=== PATIENT | male | born 1985 | race American Indian/Alaskan Native ===

== ENCOUNTER 2019-09-09 15:06 | Inpatient (IN) | payer MEDICAID ==
[2019-09-09] MEDS ORDERED: ONDANSETRON 4 MG/2 ML INJ IV PRN (15:51)
[2019-09-09] MEDS ORDERED: traMADol 50 MG TAB PO PRN (16:11)
[2019-09-09] MEDS ORDERED: oxyCODONE 5 MG TAB PO PRN (16:12)
[2019-09-09] MEDS: MORPHINE 2 MG/1 ML INJ IV PRN ×2 (17:58→22:34)
[2019-09-09] MEDS: D5W/0.2% NACL 1,000 ML IV SCH ×2 (17:59→22:33)
--- NOTE | 2019-09-09 18:35 | XRay Report ---
SUPINE ABDOMEN INDICATION: ABDOMINAL BLOATING AND PAIN. COMPARISON: No relevant prior imaging study available. FINDINGS: No dilated loops of small bowel are seen. Colonic bowel gas pattern is within normal limits. Cholecys tectomy clips are noted in the right upper quadrant. There is sclerosis within the left femoral head. This could be related to osteonecrosis. However, no femoral head collapse/remodeling is seen. Correlate clinically. IMPRESSION: 1. No acute findings. Signer Name: Fabricio Mccormack MD Signed: 09/09/2019 6:31 PM Workstation Name: [id number]
--- NOTE | 2019-09-09 18:36 | XRay Report ---
CHEST PA AND LATERAL VIEWS INDICATION: COUGH. COMPARISON: None. FINDINGS: Support devices: None. Heart: Mildly enlarged. Lungs/Pleura: No acute pulmonary or pleural findings. Abnormal appearance of the thoracolumbar spine is consistent with sickle cell disease. IMPRESSION: 1. No acute findings. 2. Chronic changes of sickle cell disease. Signer Name: Fabricio Mccormack MD Signed: 09/09/2019 6:31 PM Workstation Name: [id number]
--- NOTE | 2019-09-09 21:19 | History and Physical Report ---
History of Present Illness Date of examination: 09/09/19 Date of admission: 09/09/19 16:43 Chief complaint: Diffuse joint pain, abd pain. History of present illness: Patient presented to the office , with CC as above, and directly admitted , for sxs management/control.Exami revealed fullness on the left UQ, and tender. He will get ABd immaging, hydration, pain control, and labs. Once sxs under control, he will be d/c home. Past History Past Medical History: anemia Past Surgical History: appendectomy Social history: single, lives with family Family history: no significant family history Medications and Allergies Allergies Allergy/AdvReac Type Severity Reaction Status Date / Time meperidine [From Demerol] AdvReac Unknown Verified 09/09/19 16:21 Home Medications Medication Instructions Recorded Confirmed Last Taken Type Aspirin [Aspirin BABY CHEW TAB] 81 mg PO QDAY 09/09/19 09/09/19 09/08/19 History Ergocalciferol(Vitamin D2)(Nf) 400 units PO DAILY 09/09/19 09/09/19 09/08/19 History [Vitamin D (Nf)] Folic Acid 1 mg PO DAILY 09/09/19 09/09/19 09/08/19 History Hydroxyurea [Siklos] 1,000 mg PO DAILY 09/09/19 09/09/19 Unknown History Oxycodone HCl [roxiCODONE] 15 mg PO Q6H PRN 09/09/19 09/09/19 Unknown History Oxycodone HCl/Acetaminophen 10 mg PO Q6HR PRN 09/09/19 09/09/19 09/08/19 History [Percocet 10/325 mg] Active Meds: Active Medications Folic Acid (Folvite) 1 mg PO QDAY CJ Hydroxyurea (Hydroxyurea) 1,000 mg PO QDAY CJ Dextrose/Sodium Chloride (D5ns 0.2%) 1,000 mls @ 250 mls/hr IV DIRECT CJ Last Admin: 09/09/19 17:59 Dose: 250 mls/hr Documented by: Morphine Sulfate (Morphine) 5 mg IV Q4H PRN PRN Reason: Pain , Severe (7-10) Last Admin: 09/09/19 17:58 Dose: 5 mg Documented by: Ondansetron HCl (Zofran) 4 mg IV Q6H PRN PRN Reason: Nausea And Vomiting Oxycodone HCl (Roxicodone) 15 mg PO Q6H PRN PRN Reason: Pain, Moderate (4-6) Polyethylene Glycol (Miralax 3350) 17 gm PO BID CJ Sodium Chloride (Sodium Chloride Flush Syringe 10 Ml) 10 ml IV BID CJ Sodium Chloride (Sodium Chloride Flush Syringe 10 Ml) 10 ml IV PRN PRN PRN Reason: LINE FLUSH Tramadol HCl (Ultram) 50 mg PO Q12H PRN PRN Reason: Pain, Mild (1-3) Review of Systems Constitutional: fatigue, chronic pain Gastrointestinal: abdominal pain, nausea Exam - Constitutional Vitals: Temp Pulse Resp BP Pulse Ox 98.4 F 76 16 103/55 91 09/09/19 17:35 09/09/19 17:35 09/09/19 17:35 09/09/19 17:35 09/09/19 17:35 General appearance: Present: mild distress, well-nourished - EENT Eyes: Present: PERRL ENT: hearing intact, clear oral mucosa - Neck Neck: Present: supple, normal ROM - Respiratory Respiratory effort: normal Respiratory: bilateral: CTA - Cardiovascular Heart Sounds: Present: S1 & S2. Absent: rub, click - Extremities Extremities: pulses symmetrical, No edema Peripheral Pulses: within normal limits - Abdominal General gastrointestinal: Present: soft, non-tender, non-distended, normal bowel sounds Localized gastrointestinal: tender: LUQ Male genitourinary: Present: deferred - Rectal Rectal Exam: deferred - Integumentary Integumentary: Present: clear, warm, dry - Musculoskeletal Musculoskeletal: gait normal, strength equal bilaterally - Psychiatric Psychiatric: appropriate mood/affect, intact judgment & insight - Neurologic Neurologic: CNII-XII intact, moves all extremities Assessment and Plan - Patient Problems (1) Sickle cell anemia with pain Current Visit: Yes Status: Acute Plan to address problem: Pain control. (2) Abdomen enlarged Current Visit: Yes Status: Acute Plan to address problem: CT exam (3) Dehydration Current Visit: Yes Status: Acute Plan to address problem: hydration
[2019-09-09 21:20] LABS: Hematocrit 20.2 % (35.5-45.6); Hemoglobin 7.4 gm/dl (11.8-15.2); Mean Corpuscular HGB Conc 37 % (32-34); Mean Corpuscular Volume 104 fl (84-94); Platelet Count 150 K/mm3 (140-440); Red Blood Count 1.94 M/mm3 (3.65-5.03)
[2019-09-09 21:21] LABS: Red Cell Distribution Width 22.5 % (13.2-15.2)
[2019-09-09 21:43] LABS: Alanine Aminotransferase 67 units/L (7-56); Albumin 3.7 g/dL (3.9-5); BUN/Creatinine Ratio 27; Blood Urea Nitrogen 8 mg/dL (9-20); Calcium 8.6 mg/dL (8.4-10.2); Hemolysis Index 11; Hepatitis B Surface Antigen Non-Reactive (Negative); Hepatitis C Virus Antibody Non-Reactive (NonReactive)
[2019-09-09 22:01] LABS: Basophils % (Manual) 0 % (0.0-1.8); Total Cells Counted 100
[2019-09-09 22:02] LABS: Anisocytosis 1+; Platelet Estimate Consistent w Auto; Sickle Cells 1+; Target Cells 1+
[2019-09-09] MEDS: POLYETHYLENE GLYCOL 3350 17 GM POWDER PO SCH (22:33)
[2019-09-10] MEDS: MORPHINE 2 MG/1 ML INJ IV PRN ×5 (02:43→22:09)
[2019-09-10] MEDS: D5W/0.2% NACL 1,000 ML IV SCH ×2 (06:57→12:34)
--- NOTE | 2019-09-10 09:11 | Cat Scan Report ---
CT ABDOMEN AND PELVIS WITH CONTRAST HISTORY: ABDOMINAL PAIN COMPARISON: None. TECHNIQUE: Axial CT images were obtained through the abdomen and pelvis after 100 cc of Omnipaque 300 intravenously. Sagittal and coronal reformatted images. All CT scans at this location are performed using CT dose reduction for ALARA by means of automated exposure control. FINDINGS: CT ABDOMEN: Lung Bases: Minor segmental atelectasis is noted in both lower lobes. No effusion. Liver: The liver is markedly enlarged, particularly the left hepatic lobe. Subtle surface nodularity is identified could represent early cirrhotic changes. There is an ill-defined area of diminished att enuation in the anterior liver measuring up to 12.7 x 6.4 cm in axial plane. A few tiny foci of enhan cement are identified within this area as well. The significance of this is unclear. No discrete mass or fluid collection is appreciated. Biliary: Cholecystectomy. Spleen: The spleen is calcified and small in size measuring 5.4 cm in length. Pancreas: No significant abnormality. Adrenals: No significant abnormality. Kidneys: No significant abnormality. Lymphatics: No lymphadenopathy. Vasculature: No significant abnormality. Bowel/Peritoneum: No evidence for bowel obstruction, focal inflammation or obvious mass. There is mod erate fecal retention in the colon and fecal is aeration of material in the distal ileum. Trace ascit es is identified. No abscess or free air. The appendix is not confidently identified. CT PELVIS: : The bladder and distal ureters are unremarkable. Osseous Structures: Right hip replacement appears intact. The osseous structures are mildly sclerotic . The vertebra are age she is just above the sickle cell disease. No acute fracture. 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 Additional Findings: None IMPRESSION: No acute inflammatory process is appreciated. Marked hepatomegaly as described above. Early cirrhotic changes could be considered. There is an ill- defined area of diminished attenuation in the anterior liver of uncertain etiology. This could repres ent a perfusion abnormality. Consider further evaluation with MRI. Mild constipation. Trace ascites. Sickle cell disease findings. Signer Name: Matt Cali Jr, MD Signed: 09/10/2019 9:07 AM Workstation Name: [id number]
[2019-09-10] MEDS: PANTOPRAZOLE 20 MG TAB PO SCH (09:27)
[2019-09-10] MEDS: HYDROXYUREA 500 MG CAP PO SCH (09:27)
[2019-09-10] MEDS: POLYETHYLENE GLYCOL 3350 17 GM POWDER PO SCH ×3 (09:27→22:09)
[2019-09-10] MEDS: FOLIC ACID 1 MG TAB PO SCH (09:27)
[2019-09-10] MEDS ORDERED: SODIUM CHLORIDE 0.9% 500 ML 500 ML IV NR (09:59)
--- NOTE | 2019-09-10 10:04 | Progress Note ---
Assessment and Plan - Patient Problems (1) Sickle cell anemia with pain Current Visit: Yes Status: Acute Plan to address problem: Pain control. (2) Abdomen enlarged Current Visit: Yes Status: Acute Plan to address problem: CT exam (3) Dehydration Current Visit: Yes Status: Acute Plan to address problem: hydration Subjective Date of service: 09/10/19 Interval history: Patient seen/examined, resting in bed, just finished CT of the Abd, and awaiting results, . Labs reviewed, case d/w patient. Hgb low, base line is 9.5, and will transfuse PRBC today. Objective - Constitutional Vitals: Vital Signs - 12hr 09/09/19 09/09/19 09/10/19 22:34 23:31 02:15 Temperature 98.6 F Pulse Rate 76 Respiratory 20 22 97 H Rate Blood Pressure 130/55 O2 Sat by Pulse 87 Oximetry 09/10/19 09/10/19 09/10/19 02:43 05:21 06:57 Temperature 98.4 F Pulse Rate 70 Respiratory 18 18 18 Rate Blood Pressure 112/56 O2 Sat by Pulse 92 Oximetry General appearance: Present: mild distress, well-nourished - EENT Eyes: PERRL, EOM intact ENT: hearing intact, clear oral mucosa Ears: bilateral: normal - Neck Neck: supple, normal ROM - Respiratory Respiratory effort: normal Respiratory: bilateral: CTA - Breasts Breasts: deferred - Cardiovascular Rhythm: regular Heart Sounds: Present: S1 & S2. Absent: gallop, rub Extremities: pulses intact, No edema, normal color, Full ROM - Gastrointestinal General gastrointestinal: Present: soft, non-tender, non-distended, normal bowel sounds - Genitourinary Male genitourinary: deferred - Integumentary Integumentary: clear, warm, dry - Musculoskeletal Musculoskeletal: 1, strength equal bilaterally - Neurologic Neurologic: moves all extremities - Psychiatric Psychiatric: memory intact, appropriate mood/affect, intact judgment & insight - Labs CBC & Chem 7: 09/09/19 20:18 09/09/19 20:18 Labs: Abnormal lab results 09/09/19 09/09/19 09/09/19 Range/Units 20:18 20:18 20:18 WBC 14.3 H (4.5-11.0) K/mm3 RBC 1.94 L (3.65-5.03) M/mm3 Hgb 7.4 L (11.8-15.2) gm/dl Hct 20.2 L (35.5-45.6) % MCV 104 H (84-94) fl MCH 38 H (28-32) pg MCHC 37 H (32-34) % RDW 22.5 H (13.2-15.2) % Monocytes % (Manual) 8.0 H (0.0-7.3) % Seg Neutrophils # Man 8.9 H (1.8-7.7) K/mm3 Monocytes # (Manual) 1.1 H (0.0-0.8) K/mm3 Percent Retic 19.31 H (0.78-2.58) % BUN 8 L (9-20) mg/dL Creatinine 0.3 L (0.8-1.5) mg/dL Glucose 117 H (75-100) mg/dL Ferritin (13.0-400.0) ng/mL Total Bilirubin 5.50 H (0.1-1.2) mg/dL AST 113 H (5-40) units/L ALT 67 H (7-56) units/L Alkaline Phosphatase 167 H (35-129) units/L Albumin 3.7 L 3.5 L (3.9-5) g/dL 09/09/19 Range/Units 20:18 WBC (4.5-11.0) K/mm3 RBC (3.65-5.03) M/mm3 Hgb (11.8-15.2) gm/dl Hct (35.5-45.6) % MCV (84-94) fl MCH (28-32) pg MCHC (32-34) % RDW (13.2-15.2) % Monocytes % (Manual) (0.0-7.3) % Seg Neutrophils # Man (1.8-7.7) K/mm3 Monocytes # (Manual) (0.0-0.8) K/mm3 Percent Retic (0.78-2.58) % BUN (9-20) mg/dL Creatinine (0.8-1.5) mg/dL Glucose (75-100) mg/dL Ferritin > 2000.0 H (13.0-400.0) ng/mL Total Bilirubin (0.1-1.2) mg/dL AST (5-40) units/L ALT (7-56) units/L Alkaline Phosphatase (35-129) units/L Albumin (3.9-5) g/dL
[2019-09-10] MEDS ORDERED: LIDOCAINE-MPF (1%) 10 MG/1 ML VIAL 5 ML INFILTRATI ONE (10:06)
[2019-09-10] MEDS: cefTRIAXone/NS 1 GM/50 ML 1 GM/50 ML BAG IV SCH (12:26)
--- NOTE | 2019-09-10 15:39 | Magnetic Resonance Report ---
MRI ABDOMEN WITHOUT CONTRAST INDICATION / CLINICAL INFORMATION: abnormal CT results.. Abdominal pain. Nausea and vomiting. TECHNIQUE: Multiplanar, multisequence series were obtained through the abdomen. COMPARISON: None available. FINDINGS: LIVER: The liver is markedly enlarged with minimal surface nodularity. The liver parenchyma is diffus jasvir decreased signal consistent with iron deposition. This has the appearance of hemosiderosis. The p reviously described perfusion defect or signal abnormality in the anterior liver is not demonstrated on MRI. GALLBLADDER: Cholecystectomy. No biliary dilatation. BILE DUCTS: No significant abnormality. PANCREAS: No significant abnormality. SPLEEN: The spleen is calcified measuring 6 to 7 cm in length. ADRENALS: No significant abnormality. RIGHT KIDNEY AND URETER: No significant abnormality. LEFT KIDNEY AND URETER: No significant abnormality. STOMACH AND VISUALIZED BOWEL: No significant abnormality. PERITONEUM: No free fluid. No free air. No fluid collection. LYMPH NODES: No significant adenopathy. AORTA and ARTERIES: No significant abnormality. IVC and VEINS: No significant abnormality. ADDITIONAL FINDINGS: None. IMPRESSION: Hepatomegaly. 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 No focal mass is demonstrated. Signer Name: Matt Cali Jr, MD Signed: 09/10/2019 3:34 PM Workstation Name: [id number]
[2019-09-10] MEDS ORDERED: diphenhydrAMINE 25 MG/10 ML ORAL LIQUID PO STA (18:12)
[2019-09-11] MEDS: MORPHINE 2 MG/1 ML INJ IV PRN ×4 (02:37→20:39)
[2019-09-11] MEDS: D5W/0.2% NACL 1,000 ML IV SCH ×3 (02:41→15:58)
[2019-09-11] MEDS: cefTRIAXone/NS 1 GM/50 ML 1 GM/50 ML BAG IV SCH (09:49)
[2019-09-11] MEDS: POLYETHYLENE GLYCOL 3350 17 GM POWDER PO SCH (09:49)
[2019-09-11] MEDS: PANTOPRAZOLE 20 MG TAB PO SCH (09:50)
[2019-09-11] MEDS: FOLIC ACID 1 MG TAB PO SCH (09:50)
[2019-09-11] MEDS: HYDROXYUREA 500 MG CAP PO SCH (09:50)
--- NOTE | 2019-09-11 23:36 | Progress Note ---
Assessment and Plan - Patient Problems (1) Sickle cell anemia with pain Current Visit: Yes Status: Acute Plan to address problem: Pain control. (2) Abdomen enlarged Current Visit: Yes Status: Acute Plan to address problem: CT exam Reviewed MRI results, and starting on iron removal therapy. (3) Dehydration Current Visit: Yes Status: Acute Plan to address problem: hydration (4) Insomnia Current Visit: Yes Status: Acute Plan to address problem: due to liver dz, will use natural sleeping aid. Subjective Date of service: 09/11/19 Interval history: Patient seen/examined, resting in bed, just finished CT of the Abd, and awaiting results, . Labs reviewed, case d/w patient. Hgb low, base line is 9.5, and will transfuse PRBC today. Patient seen/examined, resting in bed, Mri reviewed, results discussed with patient. He will be started on iron extraction therapy. . Objective - Constitutional Vitals: Vital Signs - 12hr 09/11/19 09/11/19 09/11/19 11:50 16:38 20:39 Temperature 98.4 F 98.1 F Pulse Rate 63 65 Respiratory 22 22 18 Rate Blood Pressure 105/53 115/64 O2 Sat by Pulse 92 92 Oximetry 09/11/19 23:16 Temperature 98.3 F Pulse Rate 65 Respiratory 20 Rate Blood Pressure 113/57 O2 Sat by Pulse 94 Oximetry General appearance: Present: mild distress, well-nourished - EENT Eyes: PERRL, EOM intact ENT: hearing intact, clear oral mucosa Ears: bilateral: normal - Neck Neck: supple, normal ROM - Respiratory Respiratory effort: normal Respiratory: bilateral: CTA - Breasts Breasts: deferred - Cardiovascular Rhythm: regular Heart Sounds: Present: S1 & S2. Absent: gallop, rub Extremities: pulses intact, No edema, normal color, Full ROM - Gastrointestinal General gastrointestinal: Present: soft, tender, distended, normal bowel sounds Rectal Exam: deferred - Genitourinary Male genitourinary: deferred - Integumentary Integumentary: clear, warm, dry - Musculoskeletal Musculoskeletal: 1, strength equal bilaterally - Neurologic Neurologic: moves all extremities - Psychiatric Psychiatric: memory intact, appropriate mood/affect, intact judgment & insight - Labs CBC & Chem 7: 09/09/19 20:18 09/09/19 20:18 Labs: Abnormal lab results 09/10/19 Range/Units 10:43 Crossmatch See Detail
[2019-09-12] MEDS: SODIUM CHLORIDE 0.9% IV SCH (00:29)
[2019-09-12] MEDS: MELATONIN 5 MG TAB PO PRN ×2 (00:29→21:44)
[2019-09-12] MEDS: DEFEROXAMINE MESYLATE IV SCH (00:29)
[2019-09-12] MEDS: POLYETHYLENE GLYCOL 3350 17 GM POWDER PO SCH ×3 (00:29→22:00)
[2019-09-12] MEDS: MORPHINE 2 MG/1 ML INJ IV PRN ×3 (00:52→10:08)
[2019-09-12 06:13] LABS: Hematocrit 23.6 % (35.5-45.6); Hemoglobin 8.7 gm/dl (11.8-15.2)
[2019-09-12] MEDS: D5W/0.2% NACL 1,000 ML IV SCH ×2 (09:50→17:36)
[2019-09-12] MEDS: HYDROXYUREA 500 MG CAP PO SCH (09:51)
[2019-09-12] MEDS: cefTRIAXone/NS 1 GM/50 ML 1 GM/50 ML BAG IV SCH (09:51)
[2019-09-12] MEDS: PANTOPRAZOLE 20 MG TAB PO SCH (09:55)
[2019-09-12] MEDS: FOLIC ACID 1 MG TAB PO SCH (09:55)
[2019-09-12] MEDS ORDERED: MORPHINE 2 MG/1 ML INJ IV PRN (10:16)
[2019-09-12] MEDS: MORPHINE 4 MG/1 ML INJ IV PRN ×2 (17:36→21:42)
--- NOTE | 2019-09-12 19:08 | Progress Note ---
Assessment and Plan - Patient Problems (1) Sickle cell anemia with pain Current Visit: Yes Status: Acute Plan to address problem: Pain control. (2) Abdomen enlarged Current Visit: Yes Status: Acute Plan to address problem: CT exam Reviewed MRI results, and starting on iron removal therapy. (3) Dehydration Current Visit: Yes Status: Acute Plan to address problem: hydration (4) Insomnia Current Visit: Yes Status: Acute Plan to address problem: due to liver dz, will use natural sleeping aid. Subjective Date of service: 09/12/19 Interval history: Patient seen/examined, resting in bed, just finished CT of the Abd, and awaiting results, . Labs reviewed, case d/w patient. Hgb low, base line is 9.5, and will transfuse PRBC today. Patient seen/examined, resting in bed, Mri reviewed, results discussed with patient. He will be started on iron extraction therapy. . Patient seen/examined, resting in bed, labs reviewed, case d/w patient. tolerating #1of 4 desf tx. Objective - Constitutional Vitals: Vital Signs - 12hr 09/12/19 09/12/19 11:52 17:15 Temperature 98.4 F 98.8 F Pulse Rate 66 69 Respiratory 18 18 Rate Blood Pressure 96/49 121/50 O2 Sat by Pulse 91 93 Oximetry General appearance: Present: mild distress, well-nourished - EENT Eyes: PERRL, EOM intact ENT: hearing intact, clear oral mucosa Ears: bilateral: normal - Neck Neck: supple, normal ROM - Respiratory Respiratory effort: normal Respiratory: bilateral: CTA - Breasts Breasts: deferred - Cardiovascular Rhythm: regular Heart Sounds: Present: S1 & S2. Absent: gallop, rub Extremities: pulses intact, No edema, normal color, Full ROM - Gastrointestinal General gastrointestinal: Present: soft, non-tender, non-distended, normal bowel sounds Rectal Exam: deferred - Genitourinary Male genitourinary: deferred - Integumentary Integumentary: clear, warm, dry - Musculoskeletal Musculoskeletal: 1, strength equal bilaterally - Neurologic Neurologic: moves all extremities - Psychiatric Psychiatric: memory intact, appropriate mood/affect, intact judgment & insight - Labs CBC & Chem 7: 09/12/19 05:37 09/09/19 20:18 Labs: Abnormal lab results 09/12/19 Range/Units 05:37 Hgb 8.7 L (11.8-15.2) gm/dl Hct 23.6 L (35.5-45.6) %
[2019-09-13] MEDS: SODIUM CHLORIDE 0.9% IV SCH
[2019-09-13] MEDS: DEFEROXAMINE MESYLATE IV SCH
[2019-09-13] MEDS: D5W/0.2% NACL 1,000 ML IV SCH ×3 (06:39→22:51)
[2019-09-13] MEDS: FOLIC ACID 1 MG TAB PO SCH ×2 (08:47→10:53)
[2019-09-13] MEDS: HYDROXYUREA 500 MG CAP PO SCH (10:52)
[2019-09-13] MEDS: POLYETHYLENE GLYCOL 3350 17 GM POWDER PO SCH ×3 (10:52→22:11)
[2019-09-13] MEDS: PANTOPRAZOLE 20 MG TAB PO SCH (10:52)
[2019-09-13] MEDS: MORPHINE 4 MG/1 ML INJ IV PRN ×3 (10:55→19:25)
[2019-09-13] MEDS: cefTRIAXone/NS 1 GM/50 ML 1 GM/50 ML BAG IV SCH (16:42)
--- NOTE | 2019-09-13 19:18 | Progress Note ---
Assessment and Plan - Patient Problems (1) Sickle cell anemia with pain Current Visit: Yes Status: Acute Plan to address problem: Pain control. (2) Abdomen enlarged Current Visit: Yes Status: Acute Plan to address problem: CT exam Reviewed MRI results, and starting on iron removal therapy. (3) Dehydration Current Visit: Yes Status: Acute Plan to address problem: hydration (4) Insomnia Current Visit: Yes Status: Acute Plan to address problem: due to liver dz, will use natural sleeping aid. Subjective Date of service: 09/13/19 Interval history: Patient seen/examined, resting in bed, just finished CT of the Abd, and awaiting results, . Labs reviewed, case d/w patient. Hgb low, base line is 9.5, and will transfuse PRBC today. Patient seen/examined, resting in bed, Mri reviewed, results discussed with patient. He will be started on iron extraction therapy. . Patient seen/examined, resting in bed, labs reviewed, case d/w patient. tolerating #1of 4 desf tx. Patient seen/examined, resting in bed, records reviewed, case d/w patient.He is tolerating the desf ok. the last bag will go on tomorrow.He will be d/c home subsequently. Objective - Constitutional Vitals: Vital Signs - 12hr 09/13/19 09/13/19 09/13/19 13:35 16:54 17:48 Temperature 98.6 F 98.5 F Pulse Rate 73 75 Respiratory 16 20 Rate Blood Pressure 109/52 113/54 O2 Sat by Pulse 94 94 95 Oximetry General appearance: Present: mild distress, well-nourished - EENT Eyes: PERRL, EOM intact ENT: hearing intact, clear oral mucosa Ears: bilateral: normal - Neck Neck: supple, normal ROM - Respiratory Respiratory effort: normal Respiratory: bilateral: CTA - Breasts Breasts: deferred - Cardiovascular Rhythm: regular Heart Sounds: Present: S1 & S2. Absent: gallop, rub Extremities: pulses intact, No edema, normal color, Full ROM - Gastrointestinal General gastrointestinal: Present: soft, non-tender, non-distended, normal bowel sounds Rectal Exam: deferred - Genitourinary Male genitourinary: deferred - Integumentary Integumentary: clear, warm, dry - Musculoskeletal Musculoskeletal: 1, strength equal bilaterally - Neurologic Neurologic: moves all extremities - Psychiatric Psychiatric: memory intact, appropriate mood/affect, intact judgment & insight - Labs CBC & Chem 7: 09/12/19 05:37 09/09/19 20:18
[2019-09-13] MEDS: MELATONIN 5 MG TAB PO PRN (22:11)
[2019-09-14] MEDS: DEFEROXAMINE MESYLATE IV SCH (00:02)
[2019-09-14] MEDS: SODIUM CHLORIDE 0.9% IV SCH (00:02)
[2019-09-14] MEDS: MORPHINE 4 MG/1 ML INJ IV PRN ×5 (00:36→22:40)
[2019-09-14] MEDS: D5W/0.2% NACL 1,000 ML IV SCH ×2 (08:18→18:31)
[2019-09-14] MEDS: PANTOPRAZOLE 20 MG TAB PO SCH (10:34)
[2019-09-14] MEDS: FOLIC ACID 1 MG TAB PO SCH (10:34)
[2019-09-14] MEDS: cefTRIAXone/NS 1 GM/50 ML 1 GM/50 ML BAG IV SCH (10:34)
[2019-09-14] MEDS: POLYETHYLENE GLYCOL 3350 17 GM POWDER PO SCH ×2 (10:34→22:40)
[2019-09-14] MEDS: HYDROXYUREA 500 MG CAP PO SCH (10:35)
[2019-09-14 10:55] LABS: Hematocrit 23.9 % (35.5-45.6); Hemoglobin 8.6 gm/dl (11.8-15.2)
--- NOTE | 2019-09-14 15:45 | Progress Note ---
Assessment and Plan - Patient Problems (1) Sickle cell anemia with pain Current Visit: Yes Status: Acute Plan to address problem: Pain control. (2) Abdomen enlarged Current Visit: Yes Status: Acute Plan to address problem: CT exam Reviewed MRI results, and starting on iron removal therapy. (3) Dehydration Current Visit: Yes Status: Acute Plan to address problem: hydration (4) Insomnia Current Visit: Yes Status: Acute Plan to address problem: due to liver dz, will use natural sleeping aid. Subjective Date of service: 09/14/19 Interval history: Patient seen/examined, resting in bed, just finished CT of the Abd, and awaiting results, . Labs reviewed, case d/w patient. Hgb low, base line is 9.5, and will transfuse PRBC today. Patient seen/examined, resting in bed, Mri reviewed, results discussed with patient. He will be started on iron extraction therapy. . Patient seen/examined, resting in bed, labs reviewed, case d/w patient. tolerating #1of 4 desf tx. Patient seen/examined, resting in bed, records reviewed, case d/w patient.He is tolerating the desf ok. the last bag will go on tomorrow.He will be d/c home subsequently. Patient seen/examined, resting in bed, records reviewed, case d/w patient. he will have the last Desf up tonight, and d/c home tomorrow.Retic count is down. Objective - Constitutional Vitals: Vital Signs - 12hr 09/14/19 09/14/19 05:18 14:10 Temperature 98.5 F 98.8 F Pulse Rate 68 76 Respiratory 18 18 Rate Blood Pressure 89/41 113/54 O2 Sat by Pulse 99 92 Oximetry General appearance: Present: mild distress, well-nourished - EENT Eyes: PERRL, EOM intact ENT: hearing intact, clear oral mucosa Ears: bilateral: normal - Neck Neck: supple, normal ROM - Respiratory Respiratory effort: normal Respiratory: bilateral: CTA - Breasts Breasts: deferred - Cardiovascular Rhythm: regular Heart Sounds: Present: S1 & S2. Absent: gallop, rub Extremities: pulses intact, No edema, normal color, Full ROM - Gastrointestinal General gastrointestinal: Present: soft, non-tender, non-distended, normal bowel sounds Rectal Exam: deferred - Genitourinary Male genitourinary: deferred - Integumentary Integumentary: clear, warm, dry - Musculoskeletal Musculoskeletal: 1, strength equal bilaterally - Neurologic Neurologic: moves all extremities - Psychiatric Psychiatric: memory intact, appropriate mood/affect, intact judgment & insight - Labs CBC & Chem 7: 09/14/19 09:56 09/09/19 20:18 Labs: Abnormal lab results 09/14/19 Range/Units 09:56 Hgb 8.6 L (11.8-15.2) gm/dl Hct 23.9 L (35.5-45.6) % Percent Retic 7.64 H (0.78-2.58) %
[2019-09-15] MEDS: SODIUM CHLORIDE 0.9% IV SCH (00:54)
[2019-09-15] MEDS: DEFEROXAMINE MESYLATE IV SCH (00:54)
[2019-09-15] MEDS: MELATONIN 5 MG TAB PO PRN (03:57)
[2019-09-15] MEDS: MORPHINE 4 MG/1 ML INJ IV PRN (08:47)
[2019-09-15] MEDS: PANTOPRAZOLE 20 MG TAB PO SCH (09:11)
[2019-09-15] MEDS: POLYETHYLENE GLYCOL 3350 17 GM POWDER PO SCH (09:12)
[2019-09-15] MEDS: HYDROXYUREA 500 MG CAP PO SCH (09:12)
[2019-09-15] MEDS: FOLIC ACID 1 MG TAB PO SCH (09:12)
[2019-09-15 10:48] VITALS: BP 110/54
--- NOTE | 2019-09-15 20:44 | Discharge Summary ---
Providers - Providers Date of Admission: 09/09/19 16:43 Date of discharge: 09/15/19 Attending physician: LISA PAREDES Primary care physician: LISA PAREDES Hospitalization Reason for admission: SCD/Pain crisis. Condition: Stable Hospital course: Patient presented to the office, with CC of diffuse joint pain, and abd pain. his pain was not controlled in the office, hence admitted , for sxs management, and w/up. He was hydrated, pain control, rad imaging showed cirhosis of the liver, from previous chronic iron overload.He was treated with iron chelation, will do liver bx out patient, for definitive dx. He felt much better , and was d/c home today. Disposition: DC-01 TO HOME OR SELFCARE - Discharge Diagnoses (1) Sickle cell anemia with pain Status: Chronic (2) Abdomen enlarged Status: Chronic (3) Dehydration Status: Resolved (4) Insomnia Status: Chronic Core Measure Documentation - Palliative Care Palliative Care/ Comfort Measures: Not Applicable - Core Measures Any of the following diagnoses?: none Exam - Constitutional Vitals: Temp Pulse Resp BP Pulse Ox 98.2 F 82 16 110/54 96 09/15/19 10:47 09/15/19 10:47 09/15/19 10:45 09/15/19 10:47 09/15/19 10:47 General appearance: Present: no acute distress, well-nourished - EENT Eyes: Present: PERRL ENT: hearing intact, clear oral mucosa - Neck Neck: Present: supple, normal ROM - Respiratory Respiratory effort: normal Respiratory: bilateral: CTA - Cardiovascular Heart Sounds: Present: S1 & S2. Absent: rub, click - Extremities Extremities: pulses symmetrical, No edema Peripheral Pulses: within normal limits - Abdominal General gastrointestinal: Present: soft, non-tender, non-distended, normal bowel sounds Male genitourinary: Present: deferred - Rectal Rectal Exam: deferred - Integumentary Integumentary: Present: clear, warm, dry - Musculoskeletal Musculoskeletal: gait normal, strength equal bilaterally - Psychiatric Psychiatric: appropriate mood/affect, intact judgment & insight - Neurologic Neurologic: CNII-XII intact, moves all extremities Plan Activity: no restrictions Diet: regular Follow up with: LISA PAREDES DO [Primary Care Provider] - 7 Days
== END 2019-09-15 11:10 | disposition home or self-care (01) | DRG 811 ==
LOC: 3A 15:06 → UNDOADMIN 15:06 → 3A 16:43
PROVIDERS: ADMIT Internal Medicine Hematology & Oncology; ATTEND Internal Medicine Hematology & Oncology
PROC: 30233N1 Transfusion of Nonautologous Red Blood Cells into Peripheral Vein, Percutaneous Approach (ICD-10-PCS; principal; 2019-09-10)
DX: D57.00 Hb-SS disease with crisis, unspecified (principal); R65.11 Systemic inflammatory response syndrome (SIRS) of non-infectious origin with acute organ dysfunction; E86.0 Dehydration; R18.8 Other ascites; G47.00 Insomnia, unspecified
CPT/HCPCS: 36415; 71046; 74018; 74177; 74181; 80053; 80074; 82040; 82140; 82150; 82728; 83540; 83690; 85007; 85014; 85018; 85025; 85045; 86850; 86900; 86901; 86920; 87040; 87086; 87116; 94760; 99406; G0378; J0696; J0895; J2270; J7040; J7050; P9016; Q0163; Q9967

== ENCOUNTER 2019-10-13 14:26 | Inpatient (IN) | payer MEDICAID ==
[2019-10-13] MEDS ORDERED: IBUPROFEN 600 MG TAB PO PRN (15:11)
[2019-10-13] MEDS ORDERED: MAGNESIUM HYDROXIDE (MOM) ORAL LIQD UDC PO PRN (15:11)
[2019-10-13] MEDS: D5W/0.2% NACL 1,000 ML IV SCH ×2 (17:18→21:49)
--- NOTE | 2019-10-13 17:33 | XRay Report ---
Abdomen single view INDICATION: Abdominal pain IMPRESSION: Prior cholecystectomy. Small clip identified within the right lower abdomen. Nonobstructi ve bowel gas pattern however the liver appears severely enlarged. Signer Name: Blas Dempsey MD Signed: 10/13/2019 5:28 PM Workstation Name: [id number]
[2019-10-13] MEDS ORDERED: SODIUM CHLORIDE 0.9% 500 ML 500 ML IV ONE (18:00)
[2019-10-13 18:03] LABS: Hemoglobin 7.1 gm/dl (11.8-15.2); Mean Corpuscular HGB Conc 36 % (32-34); Mean Corpuscular Volume 104 fl (84-94); Platelet Count 157 K/mm3 (140-440); Red Blood Count 1.92 M/mm3 (3.65-5.03)
[2019-10-13 18:19] LABS: Red Cell Distribution Width 20.9 % (13.2-15.2)
[2019-10-13 18:20] LABS: Hematocrit 19.9 % (35.5-45.6)
[2019-10-13 18:26] LABS: Alanine Aminotransferase 441 units/L (7-56); Albumin 3.5 g/dL (3.9-5); BUN/Creatinine Ratio 25; Blood Urea Nitrogen 15 mg/dL (9-20); Calcium 8.6 mg/dL (8.4-10.2); Hemolysis Index 3
[2019-10-13 18:58] LABS: Anisocytosis 1+; Basophils % (Manual) 0 % (0.0-1.8); Eosinophils % (Manual) 0 % (0.0-4.3); Schistocytes 1+; Total Cells Counted 100
[2019-10-13 18:59] LABS: Target Cells 1+
[2019-10-13] MEDS: MORPHINE 4 MG/1 ML INJ IV PRN (19:45)
[2019-10-13] MEDS: POLYETHYLENE GLYCOL 3350 17 GM POWDER PO SCH (21:49)
[2019-10-13] MEDS ORDERED: ALUM-MAG HYDROXIDE-SIMETHICONE 200-200-20MG/5ML ORAL LIQD 30 ML PO PRN (21:50)
--- NOTE | 2019-10-13 22:15 | History and Physical Report ---
History of Present Illness Date of examination: 10/13/19 Date of admission: 10/13/19 16:30 Chief complaint: SCD/acute pain crisis/dehydration/hypotension. History of present illness: Patient presented to the office , with CC of diffuse pain, unable, to resolve this at home, or in the office, hence this admission, for sxs control, and management. He has iron overload , from years of blood transfusion.He will get desfarol x 2-3 days, pain control, hydration. Past History Past Medical History: liver disease Social history: no significant social history, single, lives with family Family history: no significant family history Medications and Allergies Allergies Allergy/AdvReac Type Severity Reaction Status Date / Time meperidine [From Demerol] AdvReac Unknown Verified 09/09/19 16:21 Home Medications Medication Instructions Recorded Confirmed Last Taken Type Aspirin [Aspirin BABY CHEW TAB] 81 mg PO QDAY 09/09/19 09/09/19 09/08/19 History Ergocalciferol(Vitamin D2)(Nf) 400 units PO DAILY 09/09/19 09/09/19 09/08/19 History [Vitamin D (Nf)] Folic Acid 1 mg PO DAILY 09/09/19 09/09/19 09/08/19 History Hydroxyurea [Siklos] 1,000 mg PO DAILY 09/09/19 09/09/19 Unknown History Oxycodone HCl [roxiCODONE] 15 mg PO Q6H PRN 09/09/19 09/09/19 Unknown History Oxycodone HCl/Acetaminophen 10 mg PO Q6HR PRN 09/09/19 09/09/19 09/08/19 History [Percocet 10/325 mg] Active Meds: Active Medications Al Hydrox/Mg Hydrox/Simethicone (Alum-Mag Hydrox-Simeth [id number]/5ml) 30 ml PO Q6HR PRN PRN Reason: Indigestion Folic Acid (Folvite) 1 mg PO QDAY CJ Dextrose/Sodium Chloride (D5ns 0.2%) 1,000 mls @ 250 mls/hr IV DIRECT CJ Last Admin: 10/13/19 21:49 Dose: 250 mls/hr Documented by: Ibuprofen (Ibuprofen) 600 mg PO Q8H PRN PRN Reason: Pain, Mild (1-3) Magnesium Hydroxide (Milk Of Magnesia) 30 ml PO Q4H PRN PRN Reason: Constipation Morphine Sulfate (Morphine) 4 mg IV Q4H PRN PRN Reason: Pain , Severe (7-10) Last Admin: 10/13/19 19:45 Dose: 4 mg Documented by: Oxycodone HCl (Roxicodone) 15 mg PO Q6H PRN PRN Reason: Pain, Moderate (4-6) Polyethylene Glycol (Miralax 3350) 17 gm PO BID [facility] Last Admin: 10/13/19 21:49 Dose: 17 gm Documented by: Sodium Chloride (Sodium Chloride Flush Syringe 10 Ml) 10 ml IV BID [facility] Last Admin: 10/13/19 21:48 Dose: 10 ml Documented by: Sodium Chloride (Sodium Chloride Flush Syringe 10 Ml) 10 ml IV PRN PRN PRN Reason: LINE FLUSH Review of Systems Constitutional: fatigue, weakness, chronic pain Gastrointestinal: abdominal pain, nausea, constipation Integumentary: dryness Exam - Constitutional Vitals: Temp Pulse Resp BP Pulse Ox 98.0 F 123 H 16 112/78 92 10/13/19 17:22 10/13/19 17:22 10/13/19 20:15 10/13/19 17:22 10/13/19 17:22 General appearance: Present: mild distress, well-nourished - EENT Eyes: Present: PERRL ENT: hearing intact, clear oral mucosa - Neck Neck: Present: supple, normal ROM - Respiratory Respiratory effort: normal Respiratory: bilateral: CTA - Cardiovascular Heart Sounds: Present: S1 & S2. Absent: rub, click - Extremities Extremities: pulses symmetrical, No edema Peripheral Pulses: within normal limits - Abdominal General gastrointestinal: Present: soft, non-tender, non-distended, normal bowel sounds Male genitourinary: Present: deferred - Rectal Rectal Exam: deferred - Integumentary Integumentary: Present: clear, warm, dry - Musculoskeletal Musculoskeletal: gait normal, strength equal bilaterally - Psychiatric Psychiatric: appropriate mood/affect, intact judgment & insight - Neurologic Neurologic: CNII-XII intact, moves all extremities Results - Labs CBC & Chem 7: 10/13/19 17:50 10/13/19 17:50 Labs: Abnormal lab results 10/13/19 10/13/19 10/13/19 Range/Units 17:50 17:50 17:50 WBC 20.9 H (4.5-11.0) K/mm3 RBC 1.92 L (3.65-5.03) M/mm3 Hgb 7.1 L (11.8-15.2) gm/dl Hct 19.9 L* (35.5-45.6) % MCV 104 H (84-94) fl MCH 37 H (28-32) pg MCHC 36 H (32-34) % RDW 20.9 H (13.2-15.2) % Seg Neuts % (Manual) 83.0 H (40.0-70.0) % Lymphocytes % (Manual) 7.0 L (13.4-35.0) % Monocytes % (Manual) 10.0 H (0.0-7.3) % Seg Neutrophils # Man 17.3 H (1.8-7.7) K/mm3 Monocytes # (Manual) 2.1 H (0.0-0.8) K/mm3 Sodium 132 L (137-145) mmol/L Chloride 96.7 L (98-107) mmol/L Creatinine 0.6 L (0.8-1.5) mg/dL Glucose 183 H (75-100) mg/dL Ferritin 2000.0 H (13.0-400.0) ng/mL Total Bilirubin 7.30 H (0.1-1.2) mg/dL AST 417 H (5-40) units/L ALT 441 H (7-56) units/L Albumin 3.5 L (3.9-5) g/dL Assessment and Plan - Patient Problems (1) Abdomen enlarged Current Visit: No Status: Chronic Plan to address problem: Due to ESLD, /iron overload. (2) Sickle cell anemia with pain Current Visit: No Status: Chronic Plan to address problem: pain control., monitor labs. (3) Dehydration Current Visit: No Status: Resolved Plan to address problem: hydration (4) Leukocytosis Current Visit: Yes Status: Acute Plan to address problem: Most likely due to SIRS, and will treat accordingly. (5) Iron overload due to repeated red blood cell transfusions Current Visit: Yes Status: Chronic Plan to address problem: Will refrain from blood transfusion, as much as possible. (6) Iron overload syndrome Current Visit: Yes Status: Acute Plan to address problem: Iron extraction therapy.
[2019-10-13] MEDS ORDERED: cefTRIAXone/NS 2 GM/100 ML 2 GM/100 ML BAG IV ONE (23:00)
[2019-10-13] MEDS ORDERED: SODIUM CHLORIDE 0.9% 1000 ML 1,000 ML IV ONE (23:29)
[2019-10-13] MEDS: oxyCODONE 5 MG TAB PO PRN (23:38)
[2019-10-14] MEDS ORDERED: ONDANSETRON 4 MG/2 ML INJ IV PRN (01:08)
[2019-10-14] MEDS ORDERED: diphenhydrAMINE 50 MG/ML VIAL IV PRN (01:09)
[2019-10-14] MEDS: D5W/0.2% NACL 1,000 ML IV SCH ×4 (05:26→21:15)
[2019-10-14] MEDS: oxyCODONE 5 MG TAB PO PRN ×3 (05:29→21:15)
[2019-10-14] MEDS: POLYETHYLENE GLYCOL 3350 17 GM POWDER PO SCH ×2 (09:34→22:04)
[2019-10-14] MEDS: FOLIC ACID 1 MG TAB PO SCH (09:34)
[2019-10-14] MEDS: cefTRIAXone/NS 2 GM/100 ML 2 GM/100 ML BAG IV SCH (09:34)
[2019-10-14] MEDS: DEFEROXAMINE MESYLATE IV SCH (10:32)
[2019-10-14] MEDS: SODIUM CHLORIDE 0.9% IV SCH (10:32)
--- NOTE | 2019-10-14 18:57 | Progress Note ---
Assessment and Plan - Patient Problems (1) Abdomen enlarged Current Visit: No Status: Chronic Plan to address problem: Due to ESLD, /iron overload. (2) Sickle cell anemia with pain Current Visit: No Status: Chronic Plan to address problem: pain control., monitor labs. (3) Dehydration Current Visit: No Status: Resolved Plan to address problem: hydration (4) Leukocytosis Current Visit: Yes Status: Acute Plan to address problem: Most likely due to SIRS, and will treat accordingly. (5) Iron overload due to repeated red blood cell transfusions Current Visit: Yes Status: Chronic Plan to address problem: Will refrain from blood transfusion, as much as possible. (6) Iron overload syndrome Current Visit: Yes Status: Acute Plan to address problem: Iron extraction therapy. Subjective Date of service: 10/14/19 Interval history: Patient seen/examined, resting in bed, , no new labs.tolerating Desfarol ok. will do am labs, and if stable, will plan D/C. Objective - Constitutional Vitals: Vital Signs - 12hr 10/14/19 10/14/19 10/14/19 09:39 11:42 17:43 Temperature 99.0 F 100.9 F H Pulse Rate 96 H 115 H Respiratory 18 18 Rate Blood Pressure 111/54 106/61 O2 Sat by Pulse 96 96 98 Oximetry General appearance: Present: mild distress, well-nourished - EENT Eyes: PERRL, EOM intact ENT: hearing intact, clear oral mucosa Ears: bilateral: normal - Neck Neck: supple, normal ROM - Respiratory Respiratory effort: normal Respiratory: bilateral: CTA - Breasts Breasts: deferred - Cardiovascular Rhythm: regular Heart Sounds: Present: S1 & S2. Absent: gallop, rub Extremities: pulses intact, No edema, normal color, Full ROM - Gastrointestinal General gastrointestinal: Present: soft, non-tender, non-distended, normal bowel sounds Rectal Exam: deferred - Genitourinary Male genitourinary: deferred - Integumentary Integumentary: clear, warm, dry - Musculoskeletal Musculoskeletal: 1, strength equal bilaterally - Neurologic Neurologic: moves all extremities - Psychiatric Psychiatric: memory intact, appropriate mood/affect, intact judgment & insight - Labs CBC & Chem 7: 10/13/19 17:50 10/13/19 17:50 Labs: Abnormal lab results 10/13/19 10/13/19 Range/Units 17:50 17:50 Seg Neuts % (Manual) 83.0 H (40.0-70.0) % Lymphocytes % (Manual) 7.0 L (13.4-35.0) % Monocytes % (Manual) 10.0 H (0.0-7.3) % Seg Neutrophils # Man 17.3 H (1.8-7.7) K/mm3 Monocytes # (Manual) 2.1 H (0.0-0.8) K/mm3 Ferritin 2000.0 H (13.0-400.0) ng/mL
[2019-10-14] MEDS ORDERED: MAGNESIUM CITRATE 300 ML ORAL LIQD PO PRN (19:45)
[2019-10-14] MEDS ORDERED: MINERAL OIL ENEMA 133 ML PR ONE (20:41)
[2019-10-14] MEDS ORDERED: guaiFENesin 200 MG TAB PO PRN (21:44)
--- NOTE | 2019-10-14 22:45 | XRay Report ---
CHEST 1 VIEW INDICATION: COUGH. COMPARISON: None. FINDINGS: Support devices: None. Heart: Mild cardiac enlargement. Lungs/Pleura: No acute air space or interstitial disease. Additional findings: Avascular necrosis of the humeral head. IMPRESSION: Mild cardiac enlargement. No acute infiltrate. Signer Name: Grupo Geronimo MD Signed: 10/14/2019 10:41 PM Workstation Name: [id number] [id number]
[2019-10-14] MEDS: ACETAMINOPHEN 325 MG TAB PO PRN (22:47)
[2019-10-15] MEDS: guaiFENesin 100 MG/5 ML ORAL LIQD PO PRN ×2 (00:42→18:30)
[2019-10-15] MEDS: D5W/0.2% NACL 1,000 ML IV SCH ×4 (01:15→20:50)
[2019-10-15] MEDS: oxyCODONE 5 MG TAB PO PRN ×3 (03:15→19:28)
[2019-10-15] MEDS: ACETAMINOPHEN 325 MG TAB PO PRN ×3 (08:03→20:07)
[2019-10-15 08:42] LABS: Hemoglobin 6.2 gm/dl (11.8-15.2)
[2019-10-15 08:45] LABS: Hematocrit 17.4 % (35.5-45.6)
[2019-10-15] MEDS ORDERED: SODIUM CHLORIDE 0.9% 500 ML 500 ML IV NR (08:55)
[2019-10-15] MEDS ORDERED: methylPREDNISolone Sod Succinate 125 MG/2 ML INJ IV NR (08:57)
[2019-10-15] MEDS ORDERED: diphenhydrAMINE 50 MG/ML VIAL IV NR (08:59)
[2019-10-15] MEDS: POLYETHYLENE GLYCOL 3350 17 GM POWDER PO SCH ×2 (09:23→21:55)
[2019-10-15] MEDS: cefTRIAXone/NS 2 GM/100 ML 2 GM/100 ML BAG IV SCH (09:24)
[2019-10-15] MEDS: DEFEROXAMINE MESYLATE IV SCH (09:25)
[2019-10-15] MEDS: SODIUM CHLORIDE 0.9% IV SCH (09:25)
[2019-10-15] MEDS: FOLIC ACID 1 MG TAB PO SCH (09:25)
--- NOTE | 2019-10-15 18:38 | Discharge Summary ---
Providers - Providers Date of Admission: 10/13/19 16:30 Date of discharge: 10/16/19 Attending physician: LISA PAREDES 10/13/19 18:07 Consult to Dietitian/Nutrition [CONS] Routine Physician Instructions: Reason For Exam: Reason for Consult: Poor oral intake 10/15/19 15:35 Consult to Physician [CONS] Urgent Comment: Consulting Provider: [facility] Physician Instructions: Reason For Exam: temperature 103.2 Primary care physician: LISA PAREDES Hospitalization Reason for admission: SCD/Dehydration Hospital course: Patient presented to the office ,with diffuse joint pain, and admitted for sxs management. He received pain med, hydration, and will get blood transfusion, only one unit for hgb of 6.2, and patient already have liver Dz from iron over load.If no fever in tomorrow, and he gets blood ok, will d/c home, otherwise, will allow ID to see.So far all cultures reviewed, are negative.Patient has been on IV ABX , since admission. 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 Disposition: DC- TO HOME OR SELFCARE - Discharge Diagnoses (1) Abdomen enlarged Status: Chronic (2) Sickle cell anemia with pain Status: Resolved (3) Dehydration Status: Resolved (4) Leukocytosis Status: Chronic (5) Iron overload due to repeated red blood cell transfusions Status: Chronic (6) Iron overload syndrome Status: Chronic Core Measure Documentation - Palliative Care Palliative Care/ Comfort Measures: Not Applicable - Core Measures Any of the following diagnoses?: none Exam - Constitutional Vitals: Temp Pulse Resp BP Pulse Ox 100.9 F H 111 H 18 111/53 94 10/15/19 17:57 10/15/19 17:57 10/15/19 17:57 10/15/19 17:57 10/15/19 17:57 General appearance: Present: no acute distress, well-nourished - EENT Eyes: Present: PERRL ENT: hearing intact, clear oral mucosa - Neck Neck: Present: supple, normal ROM - Respiratory Respiratory effort: normal Respiratory: bilateral: CTA - Cardiovascular Heart Sounds: Present: S1 & S2. Absent: rub, click - Extremities Extremities: pulses symmetrical, No edema Peripheral Pulses: within normal limits - Abdominal General gastrointestinal: Present: distended, normal bowel sounds, other (from liver enlargement.) Localized gastrointestinal: tender: LUQ Male genitourinary: Present: deferred - Rectal Rectal Exam: deferred - Integumentary Integumentary: Present: clear, warm, dry - Musculoskeletal Musculoskeletal: gait normal, strength equal bilaterally - Psychiatric Psychiatric: appropriate mood/affect, intact judgment & insight - Neurologic Neurologic: CNII-XII intact, moves all extremities Plan Activity: no restrictions Diet: regular Follow up with: LISA PAREDES DO [Primary Care Provider] - 7 Days
[2019-10-16] MEDS: D5W/0.2% NACL 1,000 ML IV SCH ×3 (00:44→17:52)
[2019-10-16 07:24] LABS: Hemoglobin 6.3 gm/dl (11.8-15.2)
[2019-10-16] MEDS: oxyCODONE 5 MG TAB PO PRN ×2 (07:27→18:01)
[2019-10-16 07:44] LABS: Hematocrit 18.5 % (35.5-45.6)
--- NOTE | 2019-10-16 10:29 | Magnetic Resonance Report ---
MR ABDOMEN WITHOUT CONTRAST HISTORY: MRI of the liver to rule out liver abscess. Iron TECHNIQUE: Multisequence, multiplanar MRI without contrast. COMPARISON: MR abdomen without contrast 09/10/2019. CT abdomen pelvis with contrast 09/10/2019. FINDINGS: Hepatomegaly with marked enlargement of the left hepatic lobe and surface nodularity is again noted. The liver parenchyma is diffusely decreased signal on T1 and T2 images consistent with iron depositio n. Considerations include hemosiderosis or hemachromatosis. Please correlate with the patient's clini diana history. There is no evidence for focal liver mass or abscess on MRI. Previously described area o f diminished attenuation on recent CT in the anterior liver is poorly imaged on MRI. Cholecystectomy changes. No biliary dilatation. The spleen is calcified and small in size measuring 5 to 6 cm. Signal characteristics of the pancreas, kidneys, adrenal glands and visualized bowel loops are within normal limits. The aorta is widely patent. Iron deposition is also suspected in multiple normal size retroperitoneal lymph nodes. No pathologic adenopathy is identified. IMPRESSION: No significant change since 09/10/2019. No evidence for liver abscess. Hepatomegaly with cirrhotic changes. Iron deposition is suspected throughout the liver which could re present hemosiderosis or hemachromatosis. Cholecystectomy. Signer Name: Matt Cali Jr, MD Signed: 10/16/2019 10:25 AM Workstation Name: [id number]
[2019-10-16] MEDS: FOLIC ACID 1 MG TAB PO SCH (10:40)
[2019-10-16] MEDS: POLYETHYLENE GLYCOL 3350 17 GM POWDER PO SCH ×2 (10:40→21:14)
[2019-10-16] MEDS: cefTRIAXone/NS 2 GM/100 ML 2 GM/100 ML BAG IV SCH (11:10)
[2019-10-16] MEDS: DEFEROXAMINE MESYLATE IV SCH (12:00)
[2019-10-16] MEDS: SODIUM CHLORIDE 0.9% IV SCH (12:00)
--- NOTE | 2019-10-16 13:32 | Consultation ---
History of Present Illness - Reason for Consult Consult date: 10/16/19 Fever - History of Present Illness 34-year-old man with past medical history of sickle cell disease admitted to the hospital with sickle crisis. Initially presented to Dr. Kay's office, however was admitted for pain control. He is a history of iron overload from multiple blood transfusions over the years. Aside from the diffuse pain, he otherwise reports a cough productive of clear sputum which began roughly at the time of admission. Otherwise; asymptomatic. Persistently febrile, with a T-max of 103.2. White count of 21. Currently receiving ceftriaxone. Blood and urine cultures are no growth to date. Imaging personally reviewed: Chest x-ray: No infiltrate MRI abdomen: No evidence of liver abscess, evidence of iron deposition in the liver. Review of Systems: Bold if positive, otherwise negative General: fevers, chills, rigors, pain. HEENT: visual disturbance, diplopia, eye pain Respiratory: cough, sputum, hemoptysis, shortness of breath Cardiovascular: chest pain, syncope Gastrointestinal: nausea, vomiting, diarrhea, abdominal pain Genitourinary: dysuria, hematuria, flank pain Musculoskeletal: neck pain, back pain, joint pain, edema Neurologic: headaches, seizures Hematologic: easy bruising or bleeding Endocrine: night sweats, acute weight loss Skin: rash, jaundice, redness Psychiatric: suicidal, homicidal ideation Past History Past Medical History: liver disease Social history: no significant social history, single, lives with family Family history: no significant family history Medications and Allergies Allergies Allergy/AdvReac Type Severity Reaction Status Date / Time meperidine [From Demerol] AdvReac Unknown Verified 09/09/19 16:21 Home Medications Medication Instructions Recorded Confirmed Last Taken Type Aspirin [Aspirin BABY CHEW TAB] 81 mg PO QDAY 09/09/19 09/09/19 09/08/19 History Ergocalciferol(Vitamin D2)(Nf) 400 units PO DAILY 09/09/19 09/09/19 09/08/19 History [Vitamin D (Nf)] Folic Acid 1 mg PO DAILY 09/09/19 09/09/19 09/08/19 History Hydroxyurea [Siklos] 1,000 mg PO DAILY 09/09/19 09/09/19 Unknown History Oxycodone HCl [roxiCODONE] 15 mg PO Q6H PRN 09/09/19 09/09/19 Unknown History Oxycodone HCl/Acetaminophen 10 mg PO Q6HR PRN 09/09/19 09/09/19 09/08/19 History [Percocet 10/325 mg] Active Meds: Active Medications Acetaminophen (Tylenol) 650 mg PO Q6H PRN PRN Reason: FEVER >100 Last Admin: 10/15/19 20:07 Dose: 650 mg Documented by: Al Hydrox/Mg Hydrox/Simethicone (Alum-Mag Hydrox-Simeth [id number]/5ml) 30 ml PO Q6HR PRN PRN Reason: Indigestion Last Admin: 10/13/19 23:38 Dose: 30 ml Documented by: Diphenhydramine HCl (Benadryl) 12.5 mg IV Q6H PRN PRN Reason: Itching Folic Acid (Folvite) 1 mg PO QDAY CJ Last Admin: 10/16/19 10:40 Dose: 1 mg Documented by: Guaifenesin (Robitussin) 200 mg PO Q6H PRN PRN Reason: Cough Last Admin: 10/15/19 18:30 Dose: 200 mg Documented by: Dextrose/Sodium Chloride (D5ns 0.2%) 1,000 mls @ 250 mls/hr IV DIRECT CJ Last Admin: 10/16/19 07:31 Dose: 250 mls/hr Documented by: Ceftriaxone Sodium (Rocephin/Ns 2 Gm/100 Ml) 2 gm in 100 mls @ 200 mls/hr IV Q24HR CJ; Protocol Last Admin: 10/16/19 11:10 Dose: 200 mls/hr Documented by: Deferoxamine Mesylate 3,000 mg (/ Sodium Chloride) 250 mls @ 32 mls/hr IV Q24HR CJ Stop: 10/16/19 17:49 Last Admin: 10/16/19 12:00 Dose: 32 mls/hr Documented by: Ibuprofen (Ibuprofen) 600 mg PO Q8H PRN PRN Reason: Pain, Mild (1-3) Magnesium Citrate (Citrate Of Magnesia) 300 ml PO QDAY PRN PRN Reason: Bowel Movement Last Admin: 10/15/19 09:24 Dose: 300 ml Documented by: Morphine Sulfate (Morphine) 4 mg IV Q4H PRN PRN Reason: Pain , Severe (7-10) Last Admin: 10/13/19 19:45 Dose: 4 mg Documented by: Ondansetron HCl (Zofran) 4 mg IV Q6H PRN PRN Reason: Nausea And Vomiting Last Admin: 10/14/19 02:50 Dose: 4 mg Documented by: Oxycodone HCl (Roxicodone) 15 mg PO Q6H PRN PRN Reason: Pain, Moderate (4-6) Last Admin: 10/16/19 07:27 Dose: 15 mg Documented by: Polyethylene Glycol (Miralax 3350) 17 gm PO BID [facility] Last Admin: 10/16/19 10:40 Dose: 17 gm Documented by: Sodium Chloride (Sodium Chloride Flush Syringe 10 Ml) 10 ml IV BID [facility] Last Admin: 10/16/19 10:40 Dose: 10 ml Documented by: Sodium Chloride (Sodium Chloride Flush Syringe 10 Ml) 10 ml IV PRN PRN PRN Reason: LINE FLUSH Physical Examination - Physical Exam Narrative exam: Physical Exam: Constitutional: Alert, cooperative. No acute distress Head, Ears, Nose: Normocephalic, atraumatic. External ears, nose normal Eyes: Conjunctivae/corneas clear. No icterus. No ptosis. Neck: Supple, no meningeal signs Oral: dentition fair, no thrush Cardiovascular: S1, S2 normal. Respiratory: Good air entry, clear to auscultation bilaterally GI: Soft, non-tender; bowel sounds normal. No peritoneal signs. Musculoskeletal: No pedal edema, no cyanosis. Skin: No rash or abscess Hem/Lymphatic: No palpable cervical or supraclavicular nodes. No lymphangitis Psych: Mood ok. Affect normal Neurological: Awake, alert, oriented. No gross abnormality - Constitutional Vitals: Vital Signs Temp Pulse Resp BP Pulse Ox 98.9 F 94 H 20 111/56 93 10/16/19 11:37 10/16/19 11:37 10/16/19 11:37 10/16/19 11:37 10/16/19 11:37 Temperature -Last 24 Hours Temperature 98.9 F Temperature 99.7 F Temperature 100.5 F Temperature 100.3 F Temperature 100.5 F Temperature 100.2 F Temperature 100 F Temperature 100 F Temperature 102.6 F Temperature 102.9 F Temperature 102.6 F Temperature 100.9 F Temperature 103.2 F Results - Labs CBC & Chem 7: 10/16/19 07:08 10/13/19 17:50 Labs: Abnormal lab results 10/15/19 10/16/19 Range/Units 09:21 07:08 Hgb 6.3 L (11.8-15.2) gm/dl Hct 18.5 L* (35.5-45.6) % Crossmatch See Detail Assessment and Plan Cultures: 10/13/2019 blood culture: pending 10/13 urine culture: pending MRSA culture: pending A&P: 34 yo M PMHx sickle cell disease admitted with a pain crisis, found to have fevers and leukocytosis #SIRS possible sepsis: Present with fevers and leukocytosis no obvious source of infection. Possible URI given acute cough. Would escalate empiric therapy to cefepime and metronidazole. Ordered procalcitonin to evaluate for infection. Lisa n crises can cause fevers and leukocytosis, though not usually to this degree. Follow up cultures #Sickle cell pain crisis Recommendations: - stopped ceftriaxone - started cefepime 2g q8h - started metronidazole 500mg q8h - ordered procalcitonin - follow up blood and urine culturs - follow up MRSA culture. Thank you for the consult, will continue to follow. Wilver Sotelo MD [facility] M: [phone] O: [phone] F: [phone]
[2019-10-16] MEDS: metroNIDAZOLE/NS 500 MG/100 ML 500 MG/100 ML BAG IV SCH ×2 (14:32→21:13)
[2019-10-16] MEDS: CEFEPIME/NS 2 GM/100 ML 2 GM/100 ML BAG IV SCH ×2 (15:33→21:13)
[2019-10-17] MEDS: D5W/0.2% NACL 1,000 ML IV SCH (02:35)
[2019-10-17] MEDS: metroNIDAZOLE/NS 500 MG/100 ML 500 MG/100 ML BAG IV SCH ×2 (05:48→13:57)
[2019-10-17] MEDS: CEFEPIME/NS 2 GM/100 ML 2 GM/100 ML BAG IV SCH ×2 (05:48→13:56)
[2019-10-17] MEDS: MORPHINE 4 MG/1 ML INJ IV PRN ×3 (05:52→13:56)
--- NOTE | 2019-10-17 06:49 | Event Note ---
Date: 10/17/19 dr wyman - asked me to cover this pt only.
--- NOTE | 2019-10-17 06:50 | Hem/Onc Progress Note ---
Assessment and Plan # Sickle cell anemia with pain Current Visit: No Status: Chronic Plan to address problem: pain control., monitor labs. # Abdomen enlarged Current Visit: No Status: Chronic Plan to address problem: Due to ESLD, /iron overload. pt had MRI abdo done - cirrhosis and iron overload pt had CT abdo done recently # Leukocytosis ID following (5) Iron overload due to repeated red blood cell transfusions Current Visit: Yes Status: Chronic Plan to address problem: Will refrain from blood transfusion, as much as possible. Later patient was seen by ID team and there is plan for discharge antibiotic was sent next is patient had MRI and CT abdomen done recently For the pain I spoke to Dr. Wyman and patient has pain medicines at home. the patient will see Dr. wyman as outpatient. - Patient Problems (1) Sickle cell anemia with pain Status: Resolved Subjective Date of service: 10/17/19 Principal diagnosis: sickle cell anemia Interval history: abdo pain Objective - Exam Narrative Exam: Vitals were reviewed. 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 x3 - Constitutional Vitals: Last Vital Signs Temp 98.5 F 10/17/19 02:01 Pulse 85 10/17/19 02:01 Resp 18 10/17/19 02:01 BP 115/70 10/17/19 02:01 Pulse Ox 95 10/17/19 00:16 - Labs Lab Results: Laboratory Results - last 24 hr 10/15/19 10/16/19 09:21 07:08 Hgb 6.3 L Hct 18.5 L* Blood Type O POSITIVE Antibody Screen Negative Crossmatch See Detail Medications & Allergies - Medications Allergies/Adverse Reactions: Allergies meperidine [From Demerol] Adverse Reaction (Verified 09/09/19 16:21) Unknown Home Medications: Home Medications Medication Instructions Recorded Confirmed Last Taken Type Aspirin [Aspirin BABY CHEW TAB] 81 mg PO QDAY 09/09/19 09/09/19 09/08/19 History Ergocalciferol(Vitamin D2)(Nf) 400 units PO DAILY 09/09/19 09/09/19 09/08/19 History [Vitamin D (Nf)] Folic Acid 1 mg PO DAILY 09/09/19 09/09/19 09/08/19 History Hydroxyurea [Siklos] 1,000 mg PO DAILY 09/09/19 09/09/19 Unknown History Oxycodone HCl [roxiCODONE] 15 mg PO Q6H PRN 09/09/19 09/09/19 Unknown History Oxycodone HCl/Acetaminophen 10 mg PO Q6HR PRN 09/09/19 09/09/19 09/08/19 History [Percocet 10/325 mg] Cefdinir 300 mg PO Q12H #10 capsule 10/17/19 Unknown Rx Active Medications: Generic Name Dose Route Start Last Admin Trade Name Freq PRN Reason Stop Dose Admin Acetaminophen 650 mg 10/14/19 21:42 10/15/19 20:07 Tylenol PO 650 mg Q6H PRN Administration FEVER >100 Al Hydrox/Mg Hydrox/Simethicone 30 ml 10/13/19 21:50 10/13/19 23:38 Alum-Mag Hydrox-Simeth 761-713-75ve/5ml PO 30 ml Q6HR PRN Administration Indigestion Diphenhydramine HCl 12.5 mg 10/14/19 01:09 Benadryl IV Q6H PRN Itching Folic Acid 1 mg 10/14/19 10:00 10/16/19 10:40 Folvite PO 1 mg QDAY CJ Administration Guaifenesin 200 mg 10/14/19 22:39 10/15/19 18:30 Robitussin PO 200 mg Q6H PRN Administration Cough Dextrose/Sodium Chloride 1,000 mls @ 250 mls/hr 10/13/19 16:00 10/17/19 02:35 D5ns 0.2% IV 250 mls/hr DIRECT CJ Administration Cefepime HCl 2 gm in 100 mls @ 200 mls/hr 10/16/19 14:00 10/17/19 05:48 Cefepime/Ns 2 Gm/100 Ml IV 200 mls/hr Q8HR CJ Administration Protocol Metronidazole 500 mg in 100 mls @ 100 mls/hr 10/16/19 14:00 10/17/19 05:48 Flagyl 500 Mg/100 Ml IV 100 mls/hr Q8HR CJ Administration Protocol Ibuprofen 600 mg 10/13/19 15:11 Ibuprofen PO Q8H PRN Pain, Mild (1-3) Magnesium Citrate 300 ml 10/14/19 19:45 10/15/19 09:24 Citrate Of Magnesia PO 300 ml QDAY PRN Administration Bowel Movement Morphine Sulfate 4 mg 10/13/19 16:43 10/17/19 05:52 Morphine IV 4 mg Q4H PRN Administration Pain , Severe (7-10) Ondansetron HCl 4 mg 10/14/19 01:08 10/14/19 02:50 Zofran IV 4 mg Q6H PRN Administration Nausea And Vomiting Oxycodone HCl 15 mg 10/13/19 15:28 10/16/19 18:01 Roxicodone PO 15 mg Q6H PRN Administration Pain, Moderate (4-6) Polyethylene Glycol 17 gm 10/13/19 22:00 10/16/19 21:14 Miralax 3350 PO 17 gm BID CJ Administration Sodium Chloride 10 ml 10/13/19 22:00 10/16/19 21:14 Sodium Chloride Flush Syringe 10 Ml IV 10 ml BID CJ Administration Sodium Chloride 10 ml 10/13/19 15:11 Sodium Chloride Flush Syringe 10 Ml IV PRN PRN LINE FLUSH
[2019-10-17 07:30] LABS: Hematocrit 21.8 % (35.5-45.6); Hemoglobin 7.5 gm/dl (11.8-15.2)
[2019-10-17] MEDS: FOLIC ACID 1 MG TAB PO SCH (09:44)
[2019-10-17] MEDS: POLYETHYLENE GLYCOL 3350 17 GM POWDER PO SCH (09:44)
[2019-10-17] MEDS: guaiFENesin 100 MG/5 ML ORAL LIQD PO PRN (10:00)
--- NOTE | 2019-10-17 11:04 | Progress Note ---
Assessment and Plan Cultures: 10/13/2019 blood culture: pending 10/13 urine culture: pending MRSA culture: negative A&P: 34 yo M PMHx sickle cell disease admitted with a pain crisis, found to have fevers and leukocytosis #SIRS possible sepsis: Present with fevers and leukocytosis no obvious source of infection. Possible URI given acute cough. Would escalate empiric therapy to cefepime and metronidazole. Ordered procalcitonin to evaluate for infection. Pain crises can cause fevers and leukocytosis, though not usually to this degree. Follow up cultures #Sickle cell pain crisis Recommendations: - stopped ceftriaxone - started cefepime 2g q8h - started metronidazole 500mg q8h - ordered procalcitonin pending. Repeat CBC is pending as well. - follow up blood and urine cultures I believe he most likely has a viral URI. Procal and repeat CBC pending, pending results could recommend for discharge. Will check back this afternoon. Thank you for the consult, will continue to follow. Dr. Foster covering this weekend. Wilver Sotelo MD [facility] M: [phone] O: [phone] F: [phone] Subjective Date of service: 10/17/19 Principal diagnosis: sickle cell anemia Interval history: No new complaints, sickle pain is improved. Objective - Exam Narrative Exam: Physical Exam: Constitutional: Alert, cooperative. No acute distress Oral: dentition fair, no thrush Cardiovascular: S1, S2 normal. Respiratory: Good air entry, clear to auscultation bilaterally GI: Soft, non-tender; bowel sounds normal. No peritoneal signs. Musculoskeletal: No pedal edema, no cyanosis. Skin: No rash or abscess Hem/Lymphatic: No palpable cervical or supraclavicular nodes. No lymphangitis Psych: Mood ok. Affect normal Neurological: Awake, alert, oriented. No gross abnormality - Constitutional Vitals: Vital Signs Temp Pulse Resp BP Pulse Ox 98.3 F 86 16 118/66 99 10/17/19 06:23 10/17/19 06:23 10/17/19 06:23 10/17/19 06:23 10/17/19 06:23 Temperature -Last 24 Hours Temperature 98.3 F Temperature 98.5 F Temperature 98.5 F Temperature 98.4 F Temperature 99 F Temperature 99.0 F Temperature 99 F Temperature 98.5 F Temperature 98.9 F - Labs CBC & Chem 7: 10/17/19 07:08 10/13/19 17:50 Labs: Abnormal lab results 10/15/19 10/17/19 Range/Units 09:21 07:08 Hgb 7.5 L (11.8-15.2) gm/dl Hct 21.8 L (35.5-45.6) % Crossmatch See Detail
[2019-10-17 12:34] VITALS: BP 121/62
[2019-10-17 13:13] LABS: Basophils # (Auto) 0.1 K/mm3 (0.0-0.1); Basophils % (Auto) 0.7 % (0.0-1.8); Eosinophils % (Auto) 0.2 % (0.0-4.3); Hematocrit 22.2 % (35.5-45.6); Hemoglobin 7.5 gm/dl (11.8-15.2); Lymphocytes # (Auto) 2.8 K/mm3 (1.2-5.4); Lymphocytes % (Auto) 15.9 % (13.4-35.0); Mean Corpuscular HGB Conc 34 % (32-34); Mean Corpuscular Volume 102 fl (84-94); Monocytes # (Auto) 2.1 K/mm3 (0.0-0.8); Monocytes % (Auto) 11.7 % (0.0-7.3); Platelet Count 222 K/mm3 (140-440); Red Blood Count 2.19 M/mm3 (3.65-5.03)
[2019-10-17 13:23] LABS: Red Cell Distribution Width 22.1 % (13.2-15.2)
== END 2019-10-17 17:30 | disposition home or self-care (01) | DRG 812 ==
LOC: 3A 14:26 → UNDOADMIN 14:26 → 3A 16:30
PROVIDERS: ADMIT Internal Medicine Hematology & Oncology; ATTEND Internal Medicine Hematology & Oncology
PROC: 30233N1 Transfusion of Nonautologous Red Blood Cells into Peripheral Vein, Percutaneous Approach (ICD-10-PCS; principal; 2019-10-16)
DX: D57.00 Hb-SS disease with crisis, unspecified (principal); E83.111 Hemochromatosis due to repeated red blood cell transfusions; E86.0 Dehydration; R65.10 Systemic inflammatory response syndrome (SIRS) of non-infectious origin without acute organ dysfunction; K72.90 Hepatic failure, unspecified without coma; Z79.82 Long term (current) use of aspirin; Z79.899 Other long term (current) drug therapy; Z88.5 Allergy status to narcotic agent
CPT/HCPCS: 36415; 71045; 74018; 74181; 80053; 82728; 83540; 84145; 85007; 85014; 85018; 85025; 85045; 86850; 86900; 86901; 86920; 87040; 87086; 87116; G0378; J0692; J0696; J0895; J1200; J2270; J2405; J2930; J7030; J7040; J7050; P9016